=== PATIENT | male | born 1990 | race Two or more races ===

== ENCOUNTER 2024-12-07 16:47 | Emergency (ER) | payer OTHER, SELFPAY ==
[2024-12-07 16:54] VITALS: BP 112/69; PULSE 59; RESP 18; TEMP 36.9; O2SAT 99; BMI 22.8
--- NOTE | 2024-12-07 16:55 | ED_ITS ---
HPI - Animal Bite General Chief Complaint: Animal Bite Stated Complaint: bitten by racoon Time Seen by Provider: 12/07/24 19:41 Source: patient, RN notes reviewed and old records reviewed Mode of arrival: ambulatory History of Present Illness ED Provider: Lalita Price PA-C HPI narrative: 34-year-old male with no significant past medical history presenting to the ED complaining of being bitten by suspected rapid raccoon in the [facility] in [place] 3 hours [employer]. States went to urgent care however was sent to the ED. admits raccoon worked up to him and was smelling him and then bit him a few times to left leg. Patient's tetanus is unknown. Denies injury to other area. Related Data Previous Rx's ?Medication ?Instructions ?Recorded amoxicillin 875 mg-potassium 1 tab PO BID 7 days #14 tabs 12/07/24 clavulanate 125 mg tablet Allergies Allergy/AdvReac Type Severity Reaction Status Date / Time Seasonal Allergies Allergy Dry Eye Verified 12/07/24 16:57 Review of Systems Review of Systems: Yes all other systems are reviewed and are negative Constitutional: Constitutional: Reports as per [facility] Past Medical History Attestation statement: The following information was validated with the patient. Source: old records reviewed Social History Social History Advance Directives: No Advance Directives Information Provided: No Physical Exam ED Vital Signs: Vital Signs - 24 hr 12/07/24 16:54 Temperature 98.4 F Pulse Rate 59 Respiratory Rate 18 Blood Pressure 112/69 Pulse Oximetry 99 Oxygen Delivery Method Room Air BMI result Body Mass Index 22.8 Const General: cooperative, healthy appearing and no acute distress Orientation/consciousness: patient oriented x3 Limitations: no limitations HENMT Head: Yes normal to inspection and Yes atraumatic Ears: hearing grossly normal bilaterally General nose exam: Normal external nose present Face and sinus: Yes normal facial exam Eyes General: appearance normal, both eyes and all related structures EOM: EOMs intact bilaterally Neck Neck: Yes normal visual inspection and Yes no meningeal signs Resp Effort & Inspection: normal respiratory effort and no respiratory distress Cardio Rate: regular rate Skin Other: + bite wound noted to left lower leg. No active bleeding. No surrounding erythema or ecchymosis. No crepitus. No fluctuance or induration Rashes: no rashes Neuro General: patient oriented x3, tone normal and no meningeal signs Cranial nerves: Yes CN's II-XII intact bilaterally Gait exam (Neuro): Normal gait present Extrem General: Yes normal to inspection Course Course Course Narrative: This is a Rapid Medical Exam performed in triage by Lalita Price PA-C. Full HPI, ROS and PE to be performed by primary ED provider. 34 yo M presenting to the ED c/o being bitten by ?rabid raccoon in the [facility] in [place] about 3hrs ago. States raccoon walked up to him and was smelling him then bite him a few times to LLE. Tetanus unknown. PE: +bite wound noted to LLE Plan: TDap, Rabies vaccine & immune globulin Medications Administered Discontinued Medications Generic Name Dose Route Start Last Admin Trade Name Freq PRN Reason Stop Dose Admin Diphtheria/Tetanus/Acell Pertussis 0.5 ml 12/07/24 16:58 12/07/24 20:08 Diphth,Pertus(Acell),Tet Adult 0.5 Ml Syringe IM 12/07/24 16:59 0.5 ml .ONCE ONE Administration Rabies Immune Globulin 1,322 unit 12/07/24 16:58 12/07/24 20:09 Rabies Immune Globulin/Pf 900 Unit/3 Ml Vial 20 unit/kg (1322 unit) 12/07/24 16:59 1,322 unit IM Administration ONCE ONE Rabies Vaccine 1 ml 12/07/24 16:58 12/07/24 20:21 Rabies Vaccine (Pcec)/Pf 1 Ml Vial IM 12/07/24 16:59 1 ml .ONCE ONE Administration Medical Decision Making Medical Decision Making MDM Narrative: 34-year-old male with no significant past medical history presenting to the ED complaining of being bitten by suspected rapid raccoon in the [facility] in [place] 3 hours [employer]. On exam vital signs stable, NAD, nontoxic appearing, physical exam as noted above with puncture wounds/bite blake to left lower extremity without surrounding cellulitis, abscess or lymphangitis. Low suspicion for fracture. Concern for rabies exposure. Plan: Update tetanus, rabies immune globulin and vaccine & PO abx Please refer to course for remaining clinical decision making, interpretation of labs/imaging results, and discussions with consultants and/or family members. Results discussed with patient including worrisome signs and symptoms and strict return precautions, and when to return to the emergency department. They verbalized understanding and feel safe for discharge at this time. Differential Diagnosis Differential Diagnoses: The differential diagnosis associated with the presentation includes As above External Record Review External record reviewed: Inpatient record, Office record, Outpatient record, Prior outpatient labs, Prior outpatient radiology, Primary care record and Outside ED record Tests considered The following testing was considered but not selected: As above Prescription Management I considered prescription management with: Pain Medication and Antibiotic Chronic Conditions Patient?s care impacted by: Other Social Determinants Patient?s care significantly limited by Social Determinants of Health including: Other Social Determinant of Health Discharge Plan Discharge Clinical Impression: Raccoon bite Patient Disposition: Home, Self-Care Instructions: Animal Bite (ED), Rabies (ED) Additional Instructions: you need to follow up with SHORT STAY SURGERY FOR THE REMAINING DOSES OF YOUR RABIES VACCINATION SERIES Call Short Stay tomorrow morning at: [phone] To ensure your orders are in & you have appointments This will be on 12/10/24, 12/17/24 and 12/24/24 Augmentin as an antibiotic please take as prescribed until completion Keep an eye on bite blake, if begins look infected, are read, there is pus drainage, you have fever or increasing pain/swelling return to the ED immediately Your tetanus was updated today Prescriptions: New amoxicillin-pot clavulanate 875-125 mg tablet 1 tab PO BID 7 Days Qty: 14 0RF Print Language: Cymraes
[2024-12-07] MEDS: Diphth,Pertus(ACell),Tet Adult 0.5 ML SYRINGE IM (20:08)
[2024-12-07] MEDS: Rabies Immune Globulin/PF 900 UNIT/3 ML VIAL 1322 UNIT IM (20:09)
[2024-12-07] MEDS: Rabies Vaccine (PCEC)/PF 1 ML VIAL IM (20:21)
[2024-12-07 20:54] VITALS: BP 113/71; PULSE 57; RESP 16; TEMP 36.7; O2SAT 99
[2024-12-07 21:32] VITALS: BP 113/71; PULSE 57; RESP 16; TEMP 36.7; O2SAT 99
== END 2024-12-07 23:42 | disposition home or self-care (01) ==
PROVIDERS: Emergency Provider Emergency Medicine
DX: S81.852A Open bite, left lower leg, initial encounter (principal); W55.51XA Bitten by raccoon, initial encounter; M79.662 Pain in left lower leg; Y93.9 Activity, unspecified; Y92.828 Other wilderness area as the place of occurrence of the external cause; Y99.9 Unspecified external cause status; Z23 Encounter for immunization; Z20.3 Contact with and (suspected) exposure to rabies
CPT/HCPCS: 90375; 90471; 90472; 90675; 90715; 96372; 99284

== ENCOUNTER 2024-12-21 12:00 | Outpatient (RCR) | payer OTHER, SELFPAY ==
[2024-12-10 11:40] VITALS: BP 99/62; PULSE 54; RESP 16; TEMP 36.4; O2SAT 100
[2024-12-10] MEDS: Rabies Vaccine (PCEC)/PF 1 ML VIAL IM (11:49)
[2024-12-14 11:53] VITALS: BP 113/61; PULSE 56; RESP 16; TEMP 36.6; O2SAT 95
[2024-12-14] MEDS: Rabies Vaccine (PCEC)/PF 1 ML VIAL IM (11:55)
[2024-12-21 11:50] VITALS: BP 108/66; PULSE 60; RESP 16; TEMP 36.7; O2SAT 100
[2024-12-21] MEDS: Rabies Vaccine (PCEC)/PF 1 ML VIAL IM (11:53)
== END 2024-12-21 13:06 | disposition home or self-care (01) ==
LOC: HO.INF 12:00
PROVIDERS: Visit Provider Physician Assistant
DX: Z20.3 Contact with and (suspected) exposure to rabies (principal); T14.8XXD Other injury of unspecified body region, subsequent encounter; W55.51XD Bitten by raccoon, subsequent encounter
CPT/HCPCS: 90471; 90675